=== PATIENT | male | born 1965 | race Caucasian/White ===

== ENCOUNTER 2021-07-17 15:04 | Observation (INO) ==
[2021-07-17] MEDS ORDERED: MoRPHine SULFATE 4 MG/ML 1 ML CARP\\VIAL IV STA (15:41)
[2021-07-17] MEDS ORDERED: ONDANSETRON INJ 2 MG/ML 2 ML VIAL IV STA (15:41)
[2021-07-17] MEDS ORDERED: GI COCKTAIL ED USE PO ONE (15:41)
[2021-07-17] MEDS ORDERED: ASPIRIN CHEW 324 MG PO STA (15:41)
[2021-07-17 15:49] LABS: Basophils # (auto) 0.01 K/uL (0-0.2); Basophils % (auto) 0.1 %; Eosinophils # (auto) 0.04 K/uL (0-0.5); Eosinophils % (auto) 0.2 %; Hematocrit (blood only) 39.5 % (42-52); Hemoglobin 13.9 g/dL (14.0-18.0); Immature Granulocytes # (auto) 0.08 K/uL (0.00-0.02); Immature Granulocytes % (auto) 0.4 %; Lymphocytes # (auto) 1.12 K/uL (1.2-3.4); Lymphocytes % (auto) 5.7 %; Mean Corpuscular Hemoglobin 30.4 pg (25-34); Mean Corpuscular Hgb Conc 35.2 g/dL (32-36); Mean Corpuscular Volume 86.4 fL (80-100); Mean Platelet Volume 10.1 fL (7.4-10.4); Monocytes # (auto) 0.65 K/uL (0.11-0.59); Monocytes % (auto) 3.3 %; Neutrophils # (auto) 17.61 K/uL (1.4-6.5); Neutrophils % (auto) 90.3 %; Platelet Count 232 K/uL (130-400); RDW Coefficient of Variation 13.3 % (11.5-14.5); RDW Standard Deviation 41.8 fL (36.4-46.3); Red Blood Count 4.57 M/uL (4.7-6.1); White Blood Count 19.51 K/uL (4.8-10.8)
[2021-07-17 16:03] LABS: INR 1.1 (0.9-1.1); Partial Thromboplastin Ratio 0.9; Partial Thromboplastin Time 23.7 Seconds (21.0-31.0); Prothrombin Time 11.6 Seconds (9.0-12.0)
--- NOTE | 2021-07-17 16:14 | Emergency Department Note ---
Impression & Plan Chest pain, Abnormal EKG ED Provider Note NAME: DAKOTAH MARTINO AGE: 55 SEX: M : 1965 ARRIVES VIA: Walk-In INFORMANT: Patient, ED PROVIDER(S): Dakotah Kendrick DO CHIEF COMPLAINT: Chest pain HPI: The patient is a 55-year-old male who presented to the emergency department for an evaluation of chest pain. The patient started having chest pain today after he went home the cancer center. The patient has a history of multiple myeloma. He was receiving radiation to his chest. The patient states when he went home he started noticing a cramping sensation in his chest. He describes it as a cramping squeezing pain. He denies having any nausea or vomiting. He has no abdominal pain. He did note having some hiccups prior to the onset of the pain. He called the [facility] and was referred to the emergency depar tment as he was told this was not normal after having radiation. The patient denies having any black or bloody bowel moods. He states has been compliant with his usual medications. He is never had a history of coronary artery disease in the past. The patient states his symptoms have significantly improved at this time. The patient denies having any difficulty breathing at this time. He has had no hemoptysis. He denies having any black or bloody bowel moods. ROS: See above HPI for pertinent positives & negatives. A total of 10 systems reviewed and were otherwise negative. PAST MEDICAL HISTORY: See Below PAST SURGICAL HISTORY: See Below FAMILY HISTORY: See Below SOCIAL HISTORY: See Below HOME MEDICATIONS: See Below ALLERGIES: See Below VITALS: See Below PHYSICAL EXAMINATION: The patient is awake and alert. He is somewhat anxious appearing. EYES: The conjunctivae are clear. The pupils are round and reactive. EARS, NOSE, MOUTH AND THROAT: The nose is without any evidence of any deformity.. NECK: The neck is nontender and supple. RESPIRATORY: Normal respiratory effort is noted there is no evidence of wheezing rhonchi or rales CARDIOVASCULAR: Regular rate and rhythm noted there no murmurs rubs or gallops normal S1 normal S2. GASTROINTESTINAL: The abdomen is soft. Abdomen is nontender. MUSCULOSKELETAL/EXTREMITIES: There is no evidence of gross deformity full range of motion is noted in the hips and shoulders. SKIN: There is no obvious evidence of any rash. There are no petechiae, pallor or cyanosis noted. NEUROLOGIC: Patient is awake alert and oriented x3 MEDICAL DECISION MAKING: The patient is a 55-year-old male who presented to the emergency department for an evaluation of chest discomfort. The patient recently had radiation to his chest for multiple myeloma. The patient states he started having chest discomfort when he got home. The patient presented to the emergency department at the request of the cancer center. Patient was treated with aspirin in the emergency department. He was reevaluated multiple times. I discussed the patient's laboratory and radiographic studies with him. I also discussed the limitations of the emergency department work-up for chest pain with him and his significant other. Given his abnormal EKG I do feel the patient may require further inpatient management. Triage Nursing notes reviewed. Prior medical records reviewed Vital Signs: reviewed and remarkable for no significant abnormalities Differential diagnosis: Cardiac ischemia, aortic dissection, pulmonary embolism, pneumothorax, pneumonia, pericarditis, myocarditis, esophageal rupture, GERD, cholecystitis, pancreatitis, musculoskeletal, as well as other pathologies. ER treatment provided: See below Diagnostics interpreted by me: ECG: EKG was obtained in the emergency department. My interpretation is sinus tachycardia at 114 bpm. There is no ectopy. Nonspecific inferior and low lateral ST segment and T wave abnormalities were noted. This was compared to a tracing from June 29, 2021. The ischemic changes are new compared to the earlier tracing. A second EKG was obtained in the emergency department. My interpretation is normal sinus rhythm at [address] segment abnormalities appear to have improved however the inferior ST segment depressions persist. This was compared to a tracing from June 29, 2021. The inferior changes are new compared to the earlier tracing. This was a pain-free tracing. Cardiac Monitoring: An order was placed for continuous cardiac monitoring. The monitor shows a rate of 85 bpm with sinus rhythm. Laboratory studies: As stated above and show below. Imaging studies: See below Consultation(s): The [facility] hospitalist group was notified about the patient. They will evaluate the patient in the emergency department. Past Med/Surg History Medical History Encounter for examination required by Department of Transportation (DOT) Hematuria, microscopic Hypertension Surgical History [place] teeth extracted Family History Aunt Diabetes Mother Hypertension Uncle Cancer Grandmother (Paternal) Cancer Social History Smoking Status: Never smoker Hx Alcohol Use: No Hx Substance Use: No Preferred Language: Mauritanian Communication Ability: Effective Hearing Ability: Normal Beliefs That Will Affect Care: None marital status: current occupational status: employed current occupation: School bus contractor Feels Safe at Home: Yes Physical Activity Frequency Comment: has not been able to exercise Assistive Devices: Glasses Allergies Allergies Allergy/AdvReac Type Severity Reaction Status Date / Time No Known Allergies Allergy Verified 07/17/21 17:52 Home Meds Home Medications Medication Instructions Recorded Confirmed cyclobenzaprine 5 mg tablet 5 mg PO HS tab 06/14/21 07/17/21 baclofen 5 mg tablet 5 mg PO HS PRN 06/29/21 07/17/21 acyclovir 400 mg tablet 400 mg PO BID tab 07/06/21 07/17/21 tramadol 50 mg tablet 50 mg PO Q8 PRN 07/06/21 07/17/21 Valcade 1 dose PO .QMON&THUR 07/17/21 07/17/21 aspirin 81 mg tablet,delayed 81 mg PO DAILY 07/17/21 07/17/21 release dexamethasone 4 mg tablet 4 mg PO DIRECTED 07/17/21 07/17/21 lenalidomide 25 mg capsule 25 mg PO DIRECTED 07/17/21 07/17/21 (Revlimid) ondansetron HCl 8 mg tablet 8 mg PO Q8 PRN 07/17/21 07/17/21 prochlorperazine maleate 10 mg 10 mg PO DIRECTED PRN 07/17/21 07/17/21 tablet Results & Data (ED) Vital Signs Vital Signs - 24 hr 07/17/21 15:05 07/17/21 15:17 07/17/21 15:29 Temperature 36.7 C Temperature Source Temporal Artery Scan Pulse Rate 100 H 104 H Pulse Rate [Apical] 100 H Pulse Rate from SpO2 Sensor Pulse Rhythm Regular Pulse Rhythm [Apical] Regular Respiratory Rate 16 26 H Respiratory Effort / Characteristics Non-Labored Respiratory Depth Normal Shallow Blood Pressure 164/102 H 154/98 H Blood Pressure [Left Arm] 154/98 H Blood Pressure Mean 122 116 Blood Pressure Mean [Left Arm] 116 Blood Pressure Position [Left Arm] Semi-fowlers Pulse Oximetry 98 98 98 Oxygen Delivery Method Room Air Room Air Room Air Sepsis Recent Fever Within 48 Hours No Sepsis New/Unexplained Change in Mental Status No Sepsis Action Taken by Nursing No Action Required 07/17/21 15:30 07/17/21 15:43 07/17/21 16:00 Temperature Temperature Source Pulse Rate 103 H 94 H 101 H Pulse Rate [Apical] Pulse Rate from SpO2 Sensor 103 H 99 H Pulse Rhythm Pulse Rhythm [Apical] Respiratory Rate 29 H 19 28 H Respiratory Effort / Characteristics Respiratory Depth Blood Pressure 161/95 H 135/92 Blood Pressure [Left Arm] Blood Pressure Mean 117 106 Blood Pressure Mean [Left Arm] Blood Pressure Position [Left Arm] Pulse Oximetry 97 97 96 Oxygen Delivery Method Room Air Sepsis Recent Fever Within 48 Hours Sepsis New/Unexplained Change in Mental Status Sepsis Action Taken by Nursing 07/17/21 16:30 07/17/21 17:00 07/17/21 17:30 Temperature Temperature Source Pulse Rate 84 83 85 Pulse Rate [Apical] Pulse Rate from SpO2 Sensor 85 84 83 Pulse Rhythm Pulse Rhythm [Apical] Respiratory Rate 13 28 H 18 Respiratory Effort / Characteristics Respiratory Depth Blood Pressure 137/89 130/86 134/98 Blood Pressure [Left Arm] Blood Pressure Mean 105 100 110 Blood Pressure Mean [Left Arm] Blood Pressure Position [Left Arm] Pulse Oximetry 95 97 97 Oxygen Delivery Method Sepsis Recent Fever Within 48 Hours Sepsis New/Unexplained Change in Mental Status Sepsis Action Taken by Shelter Medications Current Medication List: was personally reviewed by me Laboratory Data Attestation: I reviewed the patient's lab results. Result diagrams: 07/17/21 15:24 07/17/21 15:24 Lab Results 07/17/21 07/17/21 07/17/21 Range/Units 15:24 15:24 15:24 WBC 19.51 H (4.8-10.8) K/uL RBC 4.57 L (4.7-6.1) M/uL Hgb 13.9 L (14.0-18.0) g/dL Hct 39.5 L (42-52) % MCV 86.4 (80-100) fL MCH 30.4 (25-34) pg MCHC 35.2 (32-36) g/dL RDW Std Deviation 41.8 (36.4-46.3) fL RDW Coeff of Trent 13.3 (11.5-14.5) % Plt Count 232 (130-400) K/uL MPV 10.1 (7.4-10.4) fL Immature Gran % (Auto) 0.4 % Neut % (Auto) 90.3 % Lymph % (Auto) 5.7 % [place] % (Auto) 3.3 % Eos % (Auto) 0.2 % Baso % (Auto) 0.1 % Neut # (Auto) 17.61 H (1.4-6.5) K/uL Lymph # (Auto) 1.12 L (1.2-3.4) K/uL [place] # (Auto) 0.65 H (0.11-0.59) K/uL Eos # (Auto) 0.04 (0-0.5) K/uL Baso # (Auto) 0.01 (0-0.2) K/uL Immature Gran # (Auto) 0.08 H (0.00-0.02) K/uL PT 11.6 (9.0-12.0) Seconds INR 1.1 (0.9-1.1) APTT 23.7 (21.0-31.0) Seconds PTT Ratio 0.9 Sodium (136-145) mmol/L Potassium (3.5-5.1) mmol/L Chloride (98-107) mmol/L Carbon Dioxide (21-32) mmol/L Anion Gap (3-11) BUN (6-23) mg/dl Creatinine (0.6-1.4) mg/dl Est Cr Clr Drug Dosing ml/min Est GFR ( Amer) ml/min Est GFR (Non-Af Amer) ml/min BUN/Creatinine Ratio (10-20) Glucose (70-99(Fasting)) mg/dl Calcium (8.5-10.1) mg/dl Total Bilirubin (0.2-1.0) mg/dl AST (13-39) U/L ALT (7-52) U/L Alkaline Phosphatase (34-104) U/L Troponin I High Sens 9.3 (0-20) pg/ml Total Protein (6.0-8.3) gm/dl Albumin (3.4-5.0) gm/dl Globulin (2.5-4.0) gm/dl Albumin/Globulin Ratio (0.9-2) Lipase (11-82) U/L SARS-CoV-2, RNA, NAAT (NEGATIVE) 07/17/21 07/17/21 Range/Units 15:24 16:18 WBC (4.8-10.8) K/uL RBC (4.7-6.1) M/uL Hgb (14.0-18.0) g/dL Hct (42-52) % MCV (80-100) fL MCH (25-34) pg MCHC (32-36) g/dL RDW Std Deviation (36.4-46.3) fL RDW Coeff of Trent (11.5-14.5) % Plt Count (130-400) K/uL MPV (7.4-10.4) fL Immature Gran % (Auto) % Neut % (Auto) % Lymph % (Auto) % [place] % (Auto) % Eos % (Auto) % Baso % (Auto) % Neut # (Auto) (1.4-6.5) K/uL Lymph # (Auto) (1.2-3.4) K/uL [place] # (Auto) (0.11-0.59) K/uL Eos # (Auto) (0-0.5) K/uL Baso # (Auto) (0-0.2) K/uL Immature Gran # (Auto) (0.00-0.02) K/uL PT (9.0-12.0) Seconds INR (0.9-1.1) APTT (21.0-31.0) Seconds PTT Ratio Sodium 130 L (136-145) mmol/L Potassium 3.6 (3.5-5.1) mmol/L Chloride 99 (98-107) mmol/L Carbon Dioxide 27 (21-32) mmol/L Anion Gap 4 (3-11) BUN 16 (6-23) mg/dl Creatinine 1.13 (0.6-1.4) mg/dl Est Cr Clr Drug Dosing 76.5 ml/min Est GFR ( Amer) 83.8 ml/min Est GFR (Non-Af Amer) 72.3 ml/min BUN/Creatinine Ratio 14.2 (10-20) Glucose 118 H (70-99(Fasting)) mg/dl Calcium 9.6 (8.5-10.1) mg/dl Total Bilirubin 1.0 (0.2-1.0) mg/dl AST 15 (13-39) U/L ALT 11 (7-52) U/L Alkaline Phosphatase 54 (34-104) U/L Troponin I High Sens (0-20) pg/ml Total Protein 10.5 H (6.0-8.3) gm/dl Albumin 4.0 (3.4-5.0) gm/dl Globulin 6.5 H (2.5-4.0) gm/dl Albumin/Globulin Ratio 0.6 L (0.9-2) Lipase 33 (11-82) U/L SARS-CoV-2, RNA, NAAT NEGATIVE (NEGATIVE) Administered Medications Discontinued Medications Al Hydrox/Mg Hydrox/Simethicone (Gi Cocktail Ed Use) 1 dose PO ONE ONE Stop: 07/17/21 15:42 Last Admin: 07/17/21 15:47 Dose: 1 dose Documented by: [id number] Aspirin (Aspirin Chew 324 Mg) 324 mg PO NOW STA Stop: 07/17/21 15:42 Last Admin: 07/17/21 15:47 Dose: 324 mg Documented by: [id number] Morphine Sulfate (Morphine Sulfate 4 Mg/Ml 1 Ml Carp\Vial) 4 mg IV NOW STA Stop: 07/17/21 15:42 Last Admin: 07/17/21 15:48 Dose: 4 mg Documented by: [id number] Ondansetron HCl (Ondansetron Inj 2 Mg/Ml 2 Ml Vial) 4 mg IV NOW STA Stop: 07/17/21 15:42 Last Admin: 07/17/21 15:48 Dose: 4 mg Documented by: [id number] Imaging Data Radiologist's Impression: Chest X-Ray 07/17/21 15:38 XR chest 1V portable CLINICAL HISTORY: Atypical chest pain TECHNIQUE: Single frontal radiograph of the chest was obtained. Comparison: Comparison is made to chest radiograph 06/29/2021 FINDINGS: No lines and tubes are seen. The cardiomediastinal silhouette is normal. The lungs are clear. No evidence of pleural effusion or pneumothorax. IMPRESSION: No acute chest disease. ACT 112: Negative or not required by law. Electronically signed by: Sarmad Lino M.D. 07/17/2021 4:37 PM Discharge Plan Visit Data Chief Complaint: Chest Pain Stated Complaint: CHEST PAINS AFTER CHEMO ED Provider: Dakotah Kendrick Discharge Problem: Chest pain, Abnormal EKG Patient Disposition: Being Evaluated by Hospitalist Forms Stand Alone Forms: [facility], [facility] Prescriptions Prescriptions: No Action acyclovir 400 mg tablet 400 mg PO BID RF: 0 tramadol 50 mg tablet 50 mg PO Q8 PRN (Reason: Pain) RF: 0 cyclobenzaprine 5 mg tablet 5 mg PO HS RF: 0 baclofen 5 mg tablet 5 mg PO HS PRN (Reason: MUSCLE SPASMS) RF: 0 ondansetron HCl 8 mg tablet 8 mg PO Q8 PRN (Reason: Nausea) RF: 0 prochlorperazine maleate 10 mg tablet 10 mg PO DIRECTED PRN (Reason: Nausea) RF: 0 aspirin [Aspir-81] 81 mg Tablet,Delayed Release (Dr/Ec) 81 mg PO DAILY RF: 0 dexamethasone 4 mg tablet 4 mg PO DIRECTED RF: 0 lenalidomide [Revlimid] 25 mg capsule 25 mg PO DIRECTED RF: 0 Valcade 1 dose PO .QMON&THUR RF: 0 Referrals Referrals: Servando Ortiz DO [Primary Care Provider] - Discharge Problem: Chest pain Qualifiers: Chest pain type: unspecified Qualified Code(s): R07.9 - Chest pain, unspecified
[2021-07-17 16:21] LABS: Albumin Globulin Ratio 0.6 (0.9-2); BUN Creatinine Ratio 14.2 (10-20); Calcium 9.6 mg/dl (8.5-10.1); Creatinine Clr Calc Pharmacy 76.5 ml/min; Est GFR (African American) 83.8 ml/min; Est GFR (Non-African American) 72.3 ml/min; Globulin 6.5 gm/dl (2.5-4.0); Potassium 3.6 mmol/L (3.5-5.1); Total Protein 10.5 gm/dl (6.0-8.3)
--- NOTE | 2021-07-17 16:38 | XRay Report ---
XR chest 1V portable CLINICAL HISTORY: Atypical chest pain TECHNIQUE: Single frontal radiograph of the chest was obtained. Comparison: Comparison is made to chest radiograph 06/29/2021 FINDINGS: No lines and tubes are seen. The cardiomediastinal silhouette is normal. The lungs are clear. No evid ence of pleural effusion or pneumothorax. IMPRESSION: No acute chest disease. ACT 112: Negative or not required by law. Electronically signed by: Sarmad Lino M.D. 07/17/2021 4:37 PM
--- NOTE | 2021-07-17 18:53 | Hospitalist Consultation ---
Date of Consultation July 17, 2021 History of Present Illness Reason for Consultation: chest pain evaluation Requesting Physician: Dr. Kendrick Attending Physician: Dr. Simmons History of Present Illness 55 YOM with medical history of: chest pain, rib fractures, lytic bone lesions, HTN, multiple myeloma. Patient recently diagnosed with multiple myeloma in June 22. Through work up of his chest pain and hematuria it was found on PET scan that he had numerous lytic lesions and rib fractures as well as lytic sternal lesion. He is receiving RVd (Lenalidomide,Bortezomib,Dexamethasone) regimen 3-4 cycles followed by radiation. He had radiation therapy performed today where he was positioned on his back supine with arms raised over his head. Following his treatment at 1045 the patient then went to [employer] to eat, while he was going into [employer] he started to get hiccups that was associated with sharp pain noted on each side of his lower sternum. This was sharp and stabbing in nature and was not associated with dyspnea, or diaphoresis. He continued to order and eat, with hiccups and the pain. He tried holding his breath and dri nking fluids and the eventually subsided. He went home and around 2 pm he was sitting in his chair and the sharp stabbing pain returned like a "cramp" in his chest that would hurt and release and then start again. This continued off and on with less severity as he came to the EMD. In the EMD the patient had CXR performed, ECG performed, routine labs to include HScTNI. The HScTNI initial was 9.3 and ECG was performed with artifact and there was concern for some non- specific inversions. Hospitalist was consulted for admission. The patient was treated with ASA, Morphine and GI cocktail. Reviewing with patient this was not associated with activity- he has pain with palpation to the 4th intercostal on the right side midclavicular line-which he reports as the same pain he was having earlier- this is also reproduced with him shrugging his shoulders up and crossing arms across chest. His CXR is reviewed without acute process of pneumothorax and mediastinum is not widened. Currently pain controlled repeat ECG is at baseline. Repeat HScTNI at 2 hour chasity which would be 8 hours following onset of symptoms is. Rest of patient's labs are notable for WBC 19 although he is receiving Dexamethasone is without fevers, cough, or sputum production and without urinary symptoms. Mild hyponatremia at 130 and normal lipase of 33. Recommendations: Heart score of 2 with reproducible chest discomfort and negative HScTNI x2. Patient given return to ER symptoms and he feels comfortable going home as he has repeat radiation therapy again in the morning. Allergies Allergy/AdvReac Type Severity Reaction Status Date / Time No Known Allergies Allergy Verified 07/17/21 17:52 Home Medications Medication Instructions Recorded Confirmed Type cyclobenzaprine 5 mg tablet 5 mg PO HS tab 06/14/21 07/17/21 History baclofen 5 mg tablet 5 mg PO HS PRN 06/29/21 07/17/21 History acyclovir 400 mg tablet 400 mg PO BID tab 07/06/21 07/17/21 History tramadol 50 mg tablet 50 mg PO Q8 PRN 07/06/21 07/17/21 History Valcade 1 dose PO .QMON&THUR 07/17/21 07/17/21 History aspirin 81 mg tablet,delayed 81 mg PO DAILY 07/17/21 07/17/21 History release dexamethasone 4 mg tablet 4 mg PO DIRECTED 07/17/21 07/17/21 History lenalidomide 25 mg capsule 25 mg PO DIRECTED 07/17/21 07/17/21 History (Revlimid) ondansetron HCl 8 mg tablet 8 mg PO Q8 PRN 07/17/21 07/17/21 History prochlorperazine maleate 10 mg 10 mg PO DIRECTED PRN 07/17/21 07/17/21 History tablet Patient History Medical History Encounter for examination required by Department of Transportation (DOT) Hematuria, microscopic Hypertension Surgical History [place] teeth extracted Family History Aunt Diabetes Mother Hypertension Uncle Cancer Grandmother (Paternal) Cancer Social History Smoking Status: Never smoker Hx Alcohol Use: No Hx Substance Use: No Preferred Language: Polish Communication Ability: Effective Hearing Ability: Normal Beliefs That Will Affect Care: None marital status: current occupational status: employed current occupation: School bus contractor Feels Safe at Home: Yes Physical Activity Frequency Comment: has not been able to exercise Assistive Devices: Glasses Results & Data Results & Data ([facility]) Vital Signs (Past 12 Hours) Vital Signs Temp Pulse Pulse Resp BP BP Pulse Ox 07/17/21 17:30 85 18 134/98 97 07/17/21 17:00 83 28 H 130/86 97 07/17/21 16:30 84 13 137/89 95 07/17/21 16:00 101 H 28 H 135/92 96 07/17/21 15:43 94 H 19 97 07/17/21 15:30 103 H 29 H 161/95 H 97 07/17/21 15:29 104 H 100 H 26 H 154/98 H 154/98 H 98 07/17/21 15:17 98 07/17/21 15:05 36.7 C 100 H 16 164/102 H 98 PG Care Time/CCT Total # of Minutes Spent Total Time Spent with Patient: Total time spent is greater than 50% in coordination of care (as documented) at patient's floor/unit and/or counseling patient: Coding
--- NOTE | 2021-07-17 19:22 | History & Physical Report ---
Date of Service July 17, 2021 Assessment & Plan (1) Chest pain: Plan: Atypical chest pain - currently does not appear as acute myocardial pain however he is right at the 3 hour chasity from highest intensity - ECG back to baseline had some non-specific changes with increase in rate - Pain gone following morphine and GI cocktail - did receive 324mg - HScTNI - 9.3 - 13.4 - trend q6- get true trend event and further risk stratify if warranted - ECG with HScTNI - Likely related to his lytic rib lesions and known broken ribs +/- positioning today causing some intercostal discomfort- can follow up short course tomorrow following radiation therapy for re-occurrence if warranted (2) Hypertension: Plan: Usually well controlled- elevated with physical exam- back to baseline without stimulation- follow - Continue with Zestril 10mg daily (3) Lytic bone lesions on xray: Plan: With rib fracture history - component of some of his chest pain (4) Multiple myeloma: Plan: Recently diagnosed see above in HPI - is scheduled for 10:25 therapy at 07/18/21- rad onc consult placed to continue with treatment as long as HScTNI negative (5) Leukocytosis: Plan: Likely related to his steroids- follow overnight - no infectious symptoms - covid test negative (6) Hyponatremia: Plan: Follow with BMP in morning - usually 130-134 range - no acute treatment needed at this time History of Present Illness Primary Care Provider: Servando Ortiz, DO 55 YOM with medical history of: chest pain, rib fractures, lytic bone lesions, HTN, multiple myeloma. Patient recently diagnosed with multiple myeloma in June 22. Through work up of his chest pain and hematuria it was found on PET scan that he had numerous lytic lesions and rib fractures as well as lytic sternal lesion. He is receiving RVd (Lenalidomide,Bortezomib,Dexamethasone) regimen 3-4 cycles followed by radiation. He had radiation therapy performed today where he was positioned on his back supine with arms raised over his head. Following his treatment at 1045 the patient then went to [employer] to eat, while he was going into [employer] he started to get hiccups that was associated with sharp pain noted on each side of his lower sternum. This was sharp and stabbing in nature and was not associated with dyspnea, or diaphoresis. He continued to order and eat, with hiccups and the pain. He tried holding his breath and drinking fluids and the eventually subsided. He went home and around 2 pm he was sitting in his chair and the sharp stabbing pain returned like a "cramp" in his chest that would hurt and release and then start again- at worst it was at 1600 with pain up to his neck. This continued off and on and he came to the EMD. In the EMD the patient had CXR performed, ECG performed, routine labs to include HScTNI. The HScTNI initial was 9.3 and ECG was performed with artifact and there was concern for some non-specific inversions. Hospitalist was consulted for admission. The patient was treated with ASA, Morphine and GI cocktail. Reviewing with patient this was not associated with activity- he has pain with palpation to the 4th intercostal on the right side midclavicular line-which he reports as the same pain he was having earlier- this is also reproduced with him shrugging his shoulders up and crossing arms across chest. His CXR is reviewed without acute process of pneumothorax and mediastinum is not widened. Currently pain controlled repeat ECG is at baseline. Repeat HScTNI at 2 hour chasity which would be 8 hours following onset of symptoms but is just at the 3 hour chasity from peak intensity. Rest of patient's labs are notable for WBC 19 although he is receiving Dexamethasone is without fevers, cough, or sputum production and without urinary symptoms. Mild hyponatremia at 130 and normal lipase of 33. Allergies Allergy/AdvReac Type Severity Reaction Status Date / Time No Known Allergies Allergy Verified 07/17/21 17:52 Home Medications Medication Instructions Recorded Confirmed Type cyclobenzaprine 5 mg tablet 5 mg PO HS tab 06/14/21 07/17/21 History baclofen 5 mg tablet 5 mg PO HS PRN 06/29/21 07/17/21 History acyclovir 400 mg tablet 400 mg PO BID tab 07/06/21 07/17/21 History tramadol 50 mg tablet 50 mg PO Q8 PRN 07/06/21 07/17/21 History Valcade 1 dose PO .QMON&THUR 07/17/21 07/17/21 History aspirin 81 mg tablet,delayed 81 mg PO DAILY 07/17/21 07/17/21 History release dexamethasone 4 mg tablet 4 mg PO DIRECTED 07/17/21 07/17/21 History lenalidomide 25 mg capsule 25 mg PO DIRECTED 07/17/21 07/17/21 History (Revlimid) ondansetron HCl 8 mg tablet 8 mg PO Q8 PRN 07/17/21 07/17/21 History prochlorperazine maleate 10 mg 10 mg PO DIRECTED PRN 07/17/21 07/17/21 History tablet Past Med/Surg History Medical History Encounter for examination required by Department of Transportation (DOT) Hematuria, microscopic Hypertension Surgical History [place] teeth extracted Family History Aunt Diabetes Mother Hypertension Uncle Cancer Grandmother (Paternal) Cancer Social History Smoking Status: Never smoker Hx Alcohol Use: No Hx Substance Use: No Preferred Language: [place] Communication Ability: Effective Hearing Ability: Normal Beliefs That Will Affect Care: None marital status: current occupational status: employed current occupation: School bus contractor Feels Safe at Home: Yes Physical Activity Frequency Comment: has not been able to exercise Assistive Devices: Glasses Review of Systems Review of Systems: REVIEW OF SYSTEMS: Constitutional: No fever, sweats or chills Eyes: No diplopia, no worsening or blurred vision ENT: normal hearing, no trouble swallowing Respiratory: No cough, sputum, dyspnea at rest or on exertion Cardiovascular: (+) chest pain, tightness, NO palpitations Abdomen: No pain, nausea, vomiting, diarrhea or constipation Musculoskeletal: (+) chest wall pain, NO calf pain, swelling Neurologic: No weakness, numbness/tingling, or balance problems Psychiatric: No anxiety or depression Skin: No rash or itch Physical Exam Physical Exam: PHYSICAL EXAM: General: awake, alert, no apparent distress Head: Normocephalic, atraumatic ENT: PERRL, EOMI, no pharyngeal exudate, mucous membranes moist Neuro: AAO x 3, speech clear and appropriate, strength intact bilaterally 5/5, sensation intact and equal all extremities and dermatomes, no pronator drift Chest: equal rise and fall of the chest, no accessory muscle use, no heaves or thrills, Clear to auscultation, on room air, Cardiac: Regular rate and rhythm, telemetry reviewed, skin warm dry, cap refill <3 seconds, peripheral pulses +2 no JVD, no murmur, no edema GI: NABS x 4 quadrants, soft, nontender to palpation, no rebound, guarding or tenderness : Spontaneously voiding, no pain, no CVA tenderness, Extremities: Normal inspection, no peripheral edema or erythema, calfs nontender to palpation Psych: Normal mood and affect Skin: no rash or erythema Results & Data Results & Data ([facility]) Vital Signs (Past 12 Hours) Vital Signs Temp Pulse Pulse Resp BP BP Pulse Ox 07/17/21 17:30 85 18 134/98 97 07/17/21 17:00 83 28 H 130/86 97 07/17/21 16:30 84 13 137/89 95 07/17/21 16:00 101 H 28 H 135/92 96 07/17/21 15:43 94 H 19 97 07/17/21 15:30 103 H 29 H 161/95 H 97 07/17/21 15:29 104 H 100 H 26 H 154/98 H 154/98 H 98 07/17/21 15:17 98 07/17/21 15:05 36.7 C 100 H 16 164/102 H 98 Laboratory Results Abnormal lab results 07/17/21 07/17/21 Range/Units 15:24 15:24 WBC 19.51 H (4.8-10.8) K/uL RBC 4.57 L (4.7-6.1) M/uL Hgb 13.9 L (14.0-18.0) g/dL Hct 39.5 L (42-52) % Neut # (Auto) 17.61 H (1.4-6.5) K/uL Lymph # (Auto) 1.12 L (1.2-3.4) K/uL Kendall # (Auto) 0.65 H (0.11-0.59) K/uL Immature Gran # (Auto) 0.08 H (0.00-0.02) K/uL Sodium 130 L (136-145) mmol/L Glucose 118 H (70-99(Fasting)) mg/dl Total Protein 10.5 H (6.0-8.3) gm/dl Globulin 6.5 H (2.5-4.0) gm/dl Albumin/Globulin Ratio 0.6 L (0.9-2) Diagnostic Findings Chest X-Ray 07/17/21 15:38 XR chest 1V portable CLINICAL HISTORY: Atypical chest pain TECHNIQUE: Single frontal radiograph of the chest was obtained. Comparison: Comparison is made to chest radiograph 06/29/2021 FINDINGS: No lines and tubes are seen. The cardiomediastinal silhouette is normal. The lungs are clear. No evidence of pleural effusion or pneumothorax. IMPRESSION: No acute chest disease. ACT 112: Negative or not required by law. Electronically signed by: Sarmad Lino M.D. 07/17/2021 4:37 PM Medications Administered Home Medications cyclobenzaprine 5 mg tablet 5 mg PO HS tab 06/14/21 [History Confirmed 07/17/21] baclofen 5 mg tablet 5 mg PO HS PRN 06/29/21 [History Confirmed 07/17/21] acyclovir 400 mg tablet 400 mg PO BID tab 07/06/21 [History Confirmed 07/17/21] tramadol 50 mg tablet 50 mg PO Q8 PRN 07/06/21 [History Confirmed 07/17/21] Valcade 1 dose PO .QMON&THUR 07/17/21 [History Confirmed 07/17/21] aspirin 81 mg tablet,delayed release 81 mg PO DAILY 07/17/21 [History Confirmed 07/17/21] dexamethasone 4 mg tablet 4 mg PO DIRECTED 07/17/21 [History Confirmed 07/17/21] lenalidomide 25 mg capsule (Revlimid) 25 mg PO DIRECTED 07/17/21 [History Confirmed 07/17/21] ondansetron HCl 8 mg tablet 8 mg PO Q8 PRN 07/17/21 [History Confirmed 07/17/21] prochlorperazine maleate 10 mg tablet 10 mg PO DIRECTED PRN 07/17/21 [History Confirmed 07/17/21] Discontinued Medications Al Hydrox/Mg Hydrox/Simethicone (Gi Cocktail Ed Use) 1 dose PO ONE ONE Stop: 07/17/21 15:42 Last Admin: 07/17/21 15:47 Dose: 1 dose Documented by: [id number] Aspirin (Aspirin Chew 324 Mg) 324 mg PO NOW STA Stop: 07/17/21 15:42 Last Admin: 07/17/21 15:47 Dose: 324 mg Documented by: [id number] Morphine Sulfate (Morphine Sulfate 4 Mg/Ml 1 Ml Carp\\Vial) 4 mg IV NOW STA Stop: 07/17/21 15:42 Last Admin: 07/17/21 15:48 Dose: 4 mg Documented by: [id number] Ondansetron HCl (Ondansetron Inj 2 Mg/Ml 2 Ml Vial) 4 mg IV NOW STA Stop: 07/17/21 15:42 Last Admin: 07/17/21 15:48 Dose: 4 mg Documented by: [id number] ECG Additional Comments: : 1800- Normal sinus rhythm Normal ECG When compared with ECG of 17-JUL-2021 15:15, (unconfirmed) Vent. rate has decreased BY [address] no longer depressed in Lateral leads T wave inversion no longer evident in Inferior leads T wave inversion no longer evident in Lateral leads [id number] 15:15 Poor data quality, interpretation may be adversely affected Sinus tachycardia ST & T wave abnormality, consider inferolateral ischemia Abnormal ECG When compared with ECG of 29-JUN-2021 09:36, T wave inversion now evident in Inferior leads T wave inversion now evident in Lateral leads Code Status & VTE Plan Code Status CODE: FULL VTE: SCDS, ambulation PG Care Time/CCT Total # of Minutes Spent Total Time Spent with Patient: Total time spent is greater than 50% in coordination of care (as documented) at patient's floor/unit and/or counseling patient: Coding Level of Care Code INT OBSERVATION CARE 70M LVL 3 Diagnoses Chest pain R07.9 Chest pain type: unspecified Hypertension I10 Lytic bone lesions on xray M89.9 Multiple myeloma C90.00 Leukocytosis D72.829 Hyponatremia E87.1 (1) Chest pain Chest pain type: unspecified Qualified Code(s): R07.9 - Chest pain, unspecified
[2021-07-17] MEDS ORDERED: ONDANSETRON 8MG OD TAB PO PRN (21:52)
[2021-07-17] MEDS ORDERED: CYCLOBENZAPRINE HCL 5 MG TAB PO SCH (21:52)
[2021-07-17] MEDS ORDERED: PROCHLORPERAZINE MALEATE 10 MG TAB PO PRN (21:52)
[2021-07-17] MEDS ORDERED: ONDANSETRON INJ 2 MG/ML 2 ML VIAL IV PRN (21:52)
[2021-07-17] MEDS ORDERED: ACETAMINOPHEN 325 MG TAB PO PRN (21:52)
[2021-07-17] MEDS ORDERED: BACLOFEN 10 MG TAB PO PRN (21:52)
[2021-07-17] MEDS ORDERED: traMADol HCL 50 MG TABLET PO ONE (22:28)
[2021-07-17] MEDS: ACYCLOVIR 400 MG TAB PO SCH (22:46)
[2021-07-18] MEDS: ACYCLOVIR 400 MG TAB PO SCH (07:31)
[2021-07-18] MEDS: lisinopril 10 MG TAB PO SCH ×2 (07:31→07:36)
[2021-07-18] MEDS ORDERED: Nursing to Pharmacy Communication SCH (07:45)
[2021-07-18] MEDS ORDERED: traMADol HCL 50 MG TABLET PO PRN (07:45)
[2021-07-18 08:41] LABS: Basophils # (auto) 0.03 K/uL (0-0.2); Basophils % (auto) 0.4 %; Eosinophils # (auto) 0.29 K/uL (0-0.5); Eosinophils % (auto) 3.4 %; Hematocrit (blood only) 38.7 % (42-52); Hemoglobin 13.4 g/dL (14.0-18.0); Immature Granulocytes # (auto) 0.05 K/uL (0.00-0.02); Immature Granulocytes % (auto) 0.6 %; Lymphocytes # (auto) 1.12 K/uL (1.2-3.4); Lymphocytes % (auto) 13.2 %; Mean Corpuscular Hemoglobin 30.2 pg (25-34); Mean Corpuscular Hgb Conc 34.6 g/dL (32-36); Mean Corpuscular Volume 87.2 fL (80-100); Monocytes # (auto) 0.47 K/uL (0.11-0.59); Monocytes % (auto) 5.5 %; Neutrophils # (auto) 6.55 K/uL (1.4-6.5); Neutrophils % (auto) 76.9 %; Platelet Count 187 K/uL (130-400); RDW Coefficient of Variation 13.7 % (11.5-14.5); RDW Standard Deviation 43.6 fL (36.4-46.3); Red Blood Count 4.44 M/uL (4.7-6.1); White Blood Count 8.51 K/uL (4.8-10.8)
--- NOTE | 2021-07-18 08:45 | Radiation OncologyConsultation ---
Date of Consultation July 18, 2021 Assessment & Plan (1) Multiple myeloma: 1. Patient will continue on his current regimen of pain medication. 2. He continues on the cardiac evaluation. 3. He has completed CT simulation and is ready to begin treatment. 4. He was to begin treatment today. He will be brought down at his scheduled treatment time. 5. Patient was in agreement with going forward with therapy. 6. Dr. Lawson has been in communication with Dr. Vines. 7. He has received 1 of 10 fractions of palliative therapy. 8. Please feel free to contact our office with any questions or concerns. Supervising Physician Co-Signing Physician Notes I have reviewed this note and agree with recommendations. Continue with radiation therapy in the inpatient setting. History of Present Illness Reason for Consultation: Patient previously seen 07/06/2021 as an outpatient consultation for multiple myeloma. He began radiation therapy yesterday. Treatment is being given to the sternum. There is a plan for a total of 10 treatments. Requesting Physician: Dr. Vines Attending Physician: Brent Vines MD History of Present Illness 06/2021. Patient initially was getting urinalysis for work-related evaluation which led to further imaging studies. 06/04/2021. CT of abdomen/pelvis. IMPRESSION: 1. No definite renal or ureteral stones. No hydronephrosis. 2. Mild bladder wall thickening. This nonspecific but is likely chronic due to the enlarged prostate gland. Recommend correlation with urinalysis to exclude a cystitis. 3. Near nondiagnostic evaluation for a urothelial lesion given the lack of contrast within the urinary tracts. However, no definite masslike urothelial thickening identified on this study. 4. Multiple scattered lytic lesions seen throughout the visualized osseous structures the majority which are subcentimeter in size. Dominant lytic lesion within the left iliac bone measures 2 cm. This is highly suspicious for multiple myeloma. Metastatic disease of unknown primary could also have a similar appearance. Follow-up hematology/oncology consultation recommended. 5. There is a 7 x 3 mm nodule within the base of the left lower lobe. This is likely benign. However, follow-up chest CT in 6 months to one year recommended for further evaluation. 06/18/2021. Peripheral blood, bone marrow aspiration, core biopsy and clot section. Plasma cell myeloma. 06/20/2021. PET/CT. IMPRESSION: 1. Innumerable scattered lytic lesions seen throughout the visualized osseous structures consistent the patient's known history of multiple myeloma. These do not demonstrate significant FDG uptake. 2. Mild FDG uptake associated with the healing right lateral ninth and 11th rib fractures. These favor pathologic fractures. 3. A single nonenlarged right submandibular lymph node with mild FDG uptake. This is nonspecific but could be reactive. This bears watching on future examinations. 4. Stable 7 x 3 mm subpleural left lower lobe pulmonary nodule without significant FDG uptake. This is likely below the threshold for PET imaging. 5. A 4.3 cm ascending thoracic aortic aneurysm. 06/29/2021. CTA chest. Impression: 1. No CTA evidence for pulmonary embolus. 2. No acute chest disease. 3. Lytic bone lesions involving the sternum and bilateral RIBS corresponding to the patient's history of multiple myeloma. Pathologic, nondisplaced fractures are present of the right seventh and ninth ribs. 07/02/2021. Medical oncology visit follow-up with [facility]CP. Radiation oncology referral for palliative radiation therapy to sternum. Plan for starting Revlimid. 07/10/2021. Patient completed his CT simulation. 07/17/2021. Patient had onset of increased chest discomfort due to hiccups. He had gone to [employer] following his radiation treatment yesterday. Because of the hiccups and pain it became very difficult for him to finish eating. There was increased pain as the hiccups would increase. The pain was severe and made him feel short of breath. He gave a pain level of 10. The pain then began to radiate towards his neck and down his right arm. He became concerned that this could be related to his heart and therefore presented to the emergency room for evaluation. He was given a GI cocktail as well as morphine. The pain improved after 20 minutes. He has had regular pain medication and today gives a pain level of 4. Our office was consulted. He was to have his second fraction of palliative radiation therapy today at 10:25. Our office was consulted. Allergies Allergy/AdvReac Type Severity Reaction Status Date / Time No Known Allergies Allergy Verified 07/17/21 17:52 Home Medications Medication Instructions Recorded Confirmed Type cyclobenzaprine 5 mg tablet 5 mg PO HS tab 06/14/21 07/17/21 History baclofen 5 mg tablet 5 mg PO HS PRN 06/29/21 07/17/21 History acyclovir 400 mg tablet 400 mg PO BID tab 07/06/21 07/17/21 History tramadol 50 mg tablet 50 mg PO Q8 PRN 07/06/21 07/17/21 History Valcade 1 dose PO .QMON&THUR 07/17/21 07/17/21 History aspirin 81 mg tablet,delayed 81 mg PO DAILY 07/17/21 07/17/21 History release dexamethasone 4 mg tablet 4 mg PO DIRECTED 07/17/21 07/17/21 History lenalidomide 25 mg capsule 25 mg PO DIRECTED 07/17/21 07/17/21 History (Revlimid) ondansetron HCl 8 mg tablet 8 mg PO Q8 PRN 07/17/21 07/17/21 History prochlorperazine maleate 10 mg 10 mg PO DIRECTED PRN 07/17/21 07/17/21 History tablet Patient History Medical History Encounter for examination required by Department of Transportation (DOT) Hematuria, microscopic Hypertension Surgical History [place] teeth extracted Family History Aunt Diabetes Mother Hypertension Uncle Cancer Grandmother (Paternal) Cancer Social History Smoking Status: Never smoker Second Hand Exposure: No; Do You Dip or Chew Tobacco: No; Hx Alcohol Use: No Hx Substance Use: No Preferred Language: Turkmen Communication Ability: Effective Hearing Ability: Normal Dump Grounds Checker Required: No Beliefs That Will Affect Care: None marital status: Current Living Situation: Spouse current occupational status: employed current occupation: School bus contractor Other Information That Helps Us Care for You: No Feels Safe at Home: Yes Safety Concerns: Feels Safe At This Time Physical Activity Frequency Comment: has not been able to exercise Assistive Devices: Glasses Review of Systems Constitutional: no fever, no chills, no weakness and no anorexia Eyes: No change in vision. Ear, Nose, Mouth, Throat: No change of hearing. Respiratory: He had shortness of breath in association with the severe chest pain. When not having pain he has no issues with his breathing. Cardiovascular: Additional Comments: See history of present illness. Patient is undergoing cardiac evaluation to ensure that his chest discomfort is from metastatic disease and not cardiac related. Gastrointestinal: no nausea, no vomiting and no pain with swallowing Genitourinary: no difficulty urinating Musculoskeletal: Pain in the area of the sternum. Integumentary: no rash Psychiatric: no problem reported Endocrine: no problem reported Hematologic / Lymphatic: no problem reported Physical Exam Constitutional: WD/WN, vitals as above Eyes: PERRL, conjunctivae normal, anicteric sclerae ENMT: Ears: no hearing impairment Neck: trachea midline, no thyromegaly Respiratory: normal respiratory effort, lungs clear to auscultation Cardiovascular: RRR, no murmur, no edema Chest (Breasts): Additional Comments: There is tenderness of the mid sternum. Gastrointestinal (Abdomen): normal bowel sounds, soft, nontender, no hepatosplenomegaly Skin: no rashes, warm and dry Neurologic: Normal strength and coordination. Psychiatric: A+Ox3, euthymic affect Results (Rad Onc) Pathology Results: were reviewed and pertinent findings noted in HPI Imaging Studies: were reviewed and pertinent findings noted in HPI Time Spent Midlevel I spent [10] minutes in preparation for this follow up evaluation including reviewing all the clinical records, reviewing laboratory studies, pathology reports and imaging results. I spent [15] minutes with direct face to face interaction with the patient and/or family including performing a physical exam and answering all questions. I spent [10] minutes documenting this patient's visit. I spent [5] minutes in coordination of care. PG Care Time/CCT Total # of Minutes Spent Total Time Spent with Patient: Total time spent is greater than 50% in coordination of care (as documented) at patient's floor/unit and/or counseling patient: C[place] [address] Inpt Consult Level 5 Patient Type Established Medical Decision Making Straight Forward Diagnoses Multiple myeloma C90.00
[2021-07-18] MEDS ORDERED: ASPIRIN 81 MG ECTAB PO SCH (09:00)
[2021-07-18 09:03] LABS: BUN Creatinine Ratio 14.2 (10-20); Calcium 9.3 mg/dl (8.5-10.1); Creatinine Clr Calc Pharmacy 72.1 ml/min; Est GFR (African American) 77.9 ml/min; Est GFR (Non-African American) 67.2 ml/min; Magnesium 2.1 mg/dl (1.7-2.4); Potassium 3.8 mmol/L (3.5-5.1)
[2021-07-18 11:13] VITALS: BP 135/82; TEMP 97.9; O2SAT 96
[2021-07-18 12:33] VITALS: PULSE 90
--- NOTE | 2021-07-18 14:43 | Electrocardiogram Report ---
Test Reason : Blood Pressure : / mmHG Vent. Rate : 114 BPM Atrial Rate : 114 BPM P-R Int : 166 ms QRS Dur : 084 ms QT Int : 332 ms P-R-T Axes : 071 041 -49 degrees QTc Int : 457 ms Poor data quality, interpretation may be adversely affected Sinus tachycardia Nonspecific ST abnormality Abnormal ECG When compared with ECG of 29-JUN-2021 09:36, T wave inversion now evident in Inferior leads T wave inversion now evident in Lateral leads Confirmed by Ike Singh ([id number]) on 07/18/2021 2:43:14 PM Referred By: REFERRED SELF Confirmed By:José Miguel Singh
--- NOTE | 2021-07-18 14:46 | Electrocardiogram Report ---
Test Reason : Blood Pressure : / mmHG Vent. Rate : 076 BPM Atrial Rate : 076 BPM P-R Int : 170 ms QRS Dur : 088 ms QT Int : 396 ms P-R-T Axes : 067 022 004 degrees QTc Int : 445 ms Normal sinus rhythm Normal ECG When compared with ECG of 17-JUL-2021 15:15, (unconfirmed) Vent. rate has decreased BY [address] no longer depressed in Lateral leads Confirmed by Ike Singh ([id number]) on 07/18/2021 2:46:20 PM Referred By: REFERRED SELF Confirmed By:José Miguel Singh
--- NOTE | 2021-07-18 14:52 | Electrocardiogram Report ---
Test Reason : Blood Pressure : / mmHG Vent. Rate : 072 BPM Atrial Rate : 072 BPM P-R Int : 166 ms QRS Dur : 088 ms QT Int : 378 ms P-R-T Axes : 058 005 -36 degrees QTc Int : 413 ms Normal sinus rhythm Nonspecific T wave abnormality Abnormal ECG When compared with ECG of 17-JUL-2021 18:44, (unconfirmed) T wave inversion more evident in Inferior leads Confirmed by Ike Singh ([id number]) on 07/18/2021 2:51:39 PM Referred By: REFERRED SELF Confirmed By:José Miguel Singh
--- NOTE | 2021-07-18 14:53 | Electrocardiogram Report ---
Test Reason : Blood Pressure : / mmHG Vent. Rate : 067 BPM Atrial Rate : 067 BPM P-R Int : 164 ms QRS Dur : 104 ms QT Int : 416 ms P-R-T Axes : 060 011 -06 degrees QTc Int : 439 ms Normal sinus rhythm Minimal voltage criteria for LVH, may be normal variant Borderline ECG When compared with ECG of 17-JUL-2021 23:23, (unconfirmed) No significant change was found Confirmed by Ike Singh ([id number]) on 07/18/2021 2:53:30 PM Referred By: REFERRED SELF Confirmed By:José Miguel Singh
--- NOTE | 2021-07-18 17:23 | Discharge Summary ---
Date of Service July 18, 2021 Admission HPI Per Admitting Provider 55 YOM with medical history of: chest pain, rib fractures, lytic bone lesions, HTN, multiple myeloma. Patient recently diagnosed with multiple myeloma in June 22. Through work up of his chest pain and hematuria it was found on PET scan that he had numerous lytic lesions and rib fractures as well as lytic sternal lesion. He is receiving RVd (Lenalidomide,Bortezomib,Dexamethasone) regimen 3-4 cycles followed by radiation. He had radiation therapy performed today where he was positioned on his back supine with arms raised over his head. Following his treatment at 1045 the patient then went to [employer] to eat, while he was going into [employer] he started to get hiccups that was associated with sharp pain noted on each side of his lower sternum. This was sharp and stabbing in nature and was not associated with dyspnea, or diaphoresis. He continued to order and eat, with hiccups and the pain. He tried holding his breath and drinking fluids and the eventually subsided. He went home and around 2 pm he was sitting in his chair and the sharp stabbing pain returned like a "cramp" in his chest that would hurt and release and then start again- at worst it was at 1600 with pain up to his neck. This continued off and on and he came to the EMD. In the EMD the patient had CXR performed, ECG performed, routine labs to include HScTNI. The HScTNI initial was 9.3 and ECG was performed with artifact and there was concern for some non-specific inversions. Hospitalist was consulted for admission. The patient was treated with ASA, Morphine and GI cocktail. Reviewing with patient this was not associated with activity- he has pain with palpation to the 4th intercostal on the right side midclavicular line-which he reports as the same pain he was having earlier- this is also reproduced with him shrugging his shoulders up and crossing arms across chest. His CXR is reviewed without acute process of pneumothorax and mediastinum is not widened. Currently pain controlled repeat ECG is at baseline. Repeat HScTNI at 2 hour chasity which would be 8 hours following onset of symptoms but is just at the 3 hour chasity from peak intensity. Rest of patient's labs are notable for WBC 19 although he is receiving Dexamethasone is without fevers, cough, or sputum production and without urinary symptoms. Mild hyponatremia at 130 and normal lipase of 33. Principal Diagnosis atypical chest pain pathologic fracture of sternum and ribs, with oncologic pain Discharge Exam The patient appeared well Vital signs as documented. Lungs are clear to auscultation and appear unlabored Cardiac exam, regular, reproducible chest pain to inspiration and palpation Abdominal exam reveals normal bowel sounds, Psychologically is without concerns for anxiety or depression. Discharge Data Allergies Allergy/AdvReac Type Severity Reaction Status Date / Time No Known Allergies Allergy Verified 07/17/21 17:52 Consultations 07/17/21 18:02 ED Decision to Admit Stat 07/17/21 21:52 Consult Radiation Oncology Routine Hospital Course (1) Chest pain: Atypical chest pain - currently does not appear as acute myocardial pain , not ACS no elevation of HsTroponin, not reproduced by walking around or exertion, actually walks on treamill at home - Pain secondary to his lytic rib lesions and known broken ribs +/- positioning caused by 'violent" Hiccups (2) Hypertension: Usually well controlled- elevated with physical exam- back to baseline without stimulation- follow - Continue with Zestril 10mg daily (3) Lytic bone lesions on xray: With rib fracture history - component of some of his chest pain discussed pain control pt reluctant to escalate about ultram, i did personally discuss with Shilpa Dumas who he sees at [facility] (4) Multiple myeloma: Recently diagnosed see above in HPI - completed xrt 07/18/21- (5) Leukocytosis: Likely related to his steroids- - no infectious symptoms - covid test negative (6) Hyponatremia: improving Total Time Total Time Spent Total Time Spent (In Minutes): It required greater than 30 minutes to prepare this patient for discharge Discharge Plan Discharge Items Patient Disposition: Home - Self-Care Reason For Visit: CHEST PAIN RULE OUT ND Discharge Diagnosis: atypical chest pain rib fractures from lytic bone lesions Activity: Per Instructions section Activity Comment: slowly increase activity levels Non-emergency contact: Primary Care Provider Call non-emergency contact if: your symptoms worsen and you have a fever Follow-up/Referrals: Servando Ortiz DO [Primary Care Provider] - 07/25/21 9:20 am Diet: Regular Addtl Attending Provider Instructions: please monitor your pain at home, if you have more pain you may occasionally take 2 ultram(tramadol) 50 mg at once, for a max of 6 a day, if you are routinely taking extra doses please discuss with Shilpa Dumas. If you notice your chest discomfort associated with exercise, like your treadmill, please notify your primary care or return to the ER Pending Studies at Discharge: No Stand-Alone Forms: [facility], Smoking Cessation Medications and DC Order Prescriptions: Continued acyclovir 400 mg tablet 400 mg PO BID RF: 0 tramadol 50 mg tablet 50 mg PO Q8 PRN (Reason: Pain) RF: 0 cyclobenzaprine 5 mg tablet 5 mg PO HS RF: 0 baclofen 5 mg tablet 5 mg PO HS PRN (Reason: MUSCLE SPASMS) RF: 0 ondansetron HCl 8 mg tablet 8 mg PO Q8 PRN (Reason: Nausea) RF: 0 prochlorperazine maleate 10 mg tablet 10 mg PO DIRECTED PRN (Reason: Nausea) RF: 0 aspirin 81 mg Tablet,Delayed Release (Dr/Ec) 81 mg PO DAILY RF: 0 dexamethasone 4 mg tablet 4 mg PO DIRECTED RF: 0 lenalidomide [Revlimid] 25 mg capsule 25 mg PO DIRECTED RF: 0 Valcade 1 dose PO .QMON&THUR RF: 0 Discharge Orders: Discharge Order (Routine); Ordered 07/18/21 Ordered By: Brent Vines Admission Data Admit Date/Time: 07/17/21 19:34 Attending Provider: Brent Vines Admit Provider: Pepe Simmons Primary Care Provider: Servando Ortiz Other Providers: Pepe Simmons ; Rose Lawson Other Interventions: Discharge Summary Assessment (RN) Last Done: 07/18/21 12:31 Coding Level of Care Code D/C DAY MANAGEMENT >30 MINS Diagnoses Chest pain R07.9 Chest pain type: unspecified Hypertension I10 Lytic bone lesions on xray M89.9 Multiple myeloma C90.00 Leukocytosis D72.829 Hyponatremia E87.1
== END 2021-07-18 13:53 | disposition home or self-care (01) ==
LOC: ED 15:04 → 2W 15:04 → SUATTDRO 19:34 → 2W 21:30